=== PATIENT | female | born 1975 ===

== ENCOUNTER → 2020-10-23 10:30 | Outpatient (BNVA) | payer OTHER, SELFPAY | PROVIDERS: Family Provider Internal Medicine; Visit Provider Nurse Practitioner Family | DX: Z20.828 Contact with and (suspected) exposure to other viral communicable diseases (principal); J06.9 Acute upper respiratory infection, unspecified | CPT/HCPCS: 87426 ==

== ENCOUNTER → 2020-12-10 16:58 | Outpatient (BNVA) | payer BC, SELFPAY | PROVIDERS: Family Provider Internal Medicine; PCP Internal Medicine; Visit Provider Obstetrics & Gynecology | DX: Z30.09 Encounter for other general counseling and advice on contraception (principal) | CPT/HCPCS: 87635 ==

== ENCOUNTER 2020-12-16 11:27 | Day surgery (SDC) | payer BC, SELFPAY ==
[2020-12-12 10:13] VITALS: BMI 32.8
--- NOTE | 2020-12-12 10:34 | ANES.PREANE2 ---
Pre-Anesthetic Assessment Pre-Anesthetic Assessment: Height/Weight: Height 1.7 m Weight 95.254 kg Preop Diagnosis: Undesired ferlitily Proposed Procedure: Operation Date: 12/16/20 12:55 Proposed Procedures p Lap Fulg,Removal of Tubes Sterilization 38387 Z30.9(Not Applicable) - Johnnie Florez MD Familial anesthetic complications: None Social: Social History: No alcohol and No tobacco Exam: Pre-Anes Outpt Exam: alert, oriented x 3, clear to auscultation bilaterally and regular rate & rhythm Airway: Cervical ROM: WNL MP: 1 Dentition: Other (missing) Anesthetic Plan: ASA status: 1 Anesthesia: General Risk of > 500 ml blood loss (7ml/kg in children): No PFSH Anesthesia PFSH: Medical History (Updated 11/23/20 @ 16:16 by Johnnie Florez MD) Depression with anxiety Stage 1 hypertension Surgical History (Updated 11/23/20 @ 16:11 by Johnnie Florez MD) No pertinent past surgical history Family History Father Cancer Brother Cancer Grandmother Diabetes Maternal Hypertension Maternal Hyperlipidemia Maternal Mother Diabetes Hyperlipidemia Social History (Updated 11/23/20 @ 16:13 by Johnnie Florez MD) Smoking and tobacco status: never smoked Alcohol intake: never Adopted: No Marital status: Current occupational status: employed Female Reproductive History: Date of last menstrual period: 11/27/20 Data Anesthesia Cardiac Studies: No Data to Display
[2020-12-12 10:52] LABS: Basophils % 0.5 %; Eosinophils # 0.1 10^3/uL (0.0-0.8); Hematocrit 41.8 % (37.0-47.0); Hemoglobin 13.9 g/dL (11.5-15.3); Lymphocytes # 1.9 10^3/uL (0.8-4.8); Mean Corpuscular HGB Conc 33.3 g/dL (30.0-36.0); Mean Corpuscular Hemoglobin 31.8 pg (28.0-34.0); Mean Corpuscular Volume 95.7 fL (81-99); Mean Platelet Volume 10.1 fL (7.4-10.4); Monocytes # 0.3 10^3/uL (0.2-0.9); Monocytes % 5.1 %; Neutrophils # 3.17 10^3/uL (1.8-7.7); Neutrophils % 57.2 %; Nucleated Red Blood Cells % 0 %; Platelet Count 241 10^3/cmm (130-400); Red Blood Count 4.37 10^6/uL (4.1-5.3); Red Cell Distribution Width 12.6 % (12.1-15.1); White Blood Count 5.5 10^3/uL (4.0-10.0)
[2020-12-16] VITALS (8 sets, daily range): BP systolic 108–142; BP diastolic 69–91; PULSE 61–89; RESP 16–19; TEMP 36.1–36.6; O2SAT 98–100
[2020-12-16 11:43] LABS: OR HCG Qualitative Urine Negative (Negative)
[2020-12-16] MEDS: sodium chloride 0.9% 1,000 ML 30 ML IV (12:01)
[2020-12-16] MEDS: ketorolac 30 mg/mL INJ IVP (12:02)
[2020-12-16] MEDS: gabapentin 300 mg Capsule PO (12:02)
--- NOTE | 2020-12-16 12:37 | W.PM.OPSUD ---
Surgery/Procedure H&P Update DATE OF PROCEDURE: December 16, 2020 DATE H&P PERFORMED: 11/20/20 H&P UPDATE INFORMATION: I have reviewed H&P completed within last 30 days, I have examined patient prior to procedure, No changes to prior documentation and H&P is in [facility] EMR on date indicated PREOP DIAGNOSIS: Undesired ferlitily PLANNED PROCEDURE: Operation Date: 12/16/20 12:55 Proposed Procedures p Lap Fulg,Removal of Tubes Sterilization 84413 Z30.9(Not Applicable) - Johnnie Florez MD
--- NOTE | 2020-12-16 13:28 | PM.OP ---
Operative Report Date of procedure: December 16, 2020 Pre-op Diagnosis: Undesired ferlitily Post-op Diagnosis: Undesired fertility Procedure Done: Laparoscopic bilateral tubal fulguration with complete salpingectomy Specimens removed/disposition: Portions of right and left fallopian tubes. Surgeon: Johnnie Florez Farm Management Professor: None Anesthesia: General Estimated blood loss (mL): 5 IV fluids (mL): 500 Urine output (mL): 200 Complications: None Findings: Second-degree uterine prolapse. Normal-appearing uterus, tubes, and ovaries. Brief History: Patient is a 45-year-old female 4, para 3-0-1-3 with an LMP of 11/10/2020 who is currently using Xulane patch for control. She presented to the office on 11/20/2020 requesting sterilization. She is adamant that she does not want any further children and wants to proceed with sterilization. She is requesting complete removal of both tubes. Permanence of the procedure was reviewed with her. The inability of complete removal of the tubes to be reversed was discussed. Failure rates and increased risk for ectopic were discussed. She still wished to proceed with sterilization. She is presenting for surgery. Procedure: Patient was taken to the operating room were general anesthesia was obtained. She was prepped and draped in the usual sterile fashion in the dorsal supine position with legs in Owen style stirrups. Sequential compression boots were placed prior to starting the case. Catheter was inserted and bladder was drained. Exam under anesthesia was performed and patient was found to have second-degree uterine prolapse. Weighted speculum was placed in the vagina and the cervix was grasped with a single-tooth tenaculum. A ZUMI was placed. The infraumbilical region was injected with 0.5% Marcaine plain. Skin incision was made with the knife in the lower edge of the navel and a size 5 trocar and sheath were inserted under direct visualization using an Optiview type technique. Trocar was removed and replaced with a laparoscope confirming intra-abdominal placement. The abdomen was inflated with carbon dioxide. The anterior abdominal wall was inspected and noted to be free of adhesions. In the left and right lower quadrants lateral to the inferior epigastric vessels, the skin was injected with 0.5% Marcaine plain. Skin incisions were made with a knife and a 5 mm trocar and sheath were inserted under direct visualization at each site. The pelvis was thoroughly inspected and was normal in appearance. Using the Voyant sealing device, starting on the left side at the fimbriated end of the tube, the mesosalpinx was sealed and cut along the length of the tube. At the proximal end of the tube, the tube itself was sealed and cut. The fallopian tube was brought out through the port. Using the Voyant sealing device, starting on the right side at the fimbriated end of the tube, the mesosalpinx was sealed and cut along the length of the tube. At the proximal end of the tube, the tube itself was sealed and cut. The fallopian tube was brought out through the port. The dissection area was thoroughly inspected and noted to be hemostatic. The abdomen was deflated and the ports removed. The 5 mm sites were closed with single stitches of 4-0 Vicryl suture. Skin glue was applied. The ZUMI was removed and there was minimal bleeding from the tenaculum site. Patient tolerated the procedure well. Sponge, needle and instrument counts were correct. DRAINS: None POSTOPERATIVE STATUS: The patient was transferred to the recovery room in satisfactory condition. DISPOSITION: Discharge to home when criteria was met. FOLLOWUP APPOINTMENT: Followup appointment is scheduled in my office on 12/31/2020. MEDICATIONS: Patient received prescriptions for: Tramadol 50 mg, 1 to 2 tablets every 6 hours as needed for pain, #20, 0 refills Ibuprofen 800 mg, 1 tablet 3 times a day as needed for pain, #30, 0 refills
--- NOTE | 2020-12-16 14:03 | ANES.PAUD2 ---
Pre-Anesthetic Update Pre-Anesthetic Assessment: Date of Surgery/Procedure: 12/16/20 Preop Diagnosis: Undesired ferlitily Proposed Procedure: Operation Date: 12/16/20 12:55 Proposed Procedures p Vanesa Marjang,Removal of Tubes Sterilization 68848 Z30.9(Not Applicable) - Johnnie Florez MD Any changes to Pre-Anesthetic Assessment?: No Last Intake: Intake Last Liquid Date 12/16/20 Last Liquid Time 03:00 Last Solid Date 12/15/20 Last Solid Time 21:30 Labs Last 48hrs: Laboratory Results - last 48 hr 12/16/20 11:28 Urine HCG, Qual Negative Vitals: Temperature 97 F L 12/16/20 13:56 Temperature Source Temporal Artery S can 12/16/20 13:45 Pulse Rate 82 12/16/20 13:56 Respiratory Rate 18 12/16/20 13:56 Blood Pressure 139/87 12/16/20 13:56 Blood Pressure Ora n 104 12/16/20 13:56 Pulse Oximetry 98 12/16/20 13:56 Oxygen Delivery Me thod 12/16/20 13:45 Oxygen Flow Rate 8 12/16/20 13:35 Exam: Pre-Anes Outpt Exam: alert, oriented x 3, clear to auscultation bilaterally and regular rate & rhythm Cardiac Studies: No Data to Display
--- NOTE | 2020-12-16 14:03 | ANE.PACU2 ---
Inpatient post-anesthesia follow up: Airway intact: Yes Vital signs: Temperature 97 F Pulse Rate 82 Respiratory Rate 18 Blood Pressure 139/87 Pulse Oximetry 98 Oxygen Delivery Me thod Room Air Oxygen Flow Rate 8 Fraction of Inspir ed Oxygen Hydration adequate: Yes Nausea and vomiting: No Pain level: 2 Mental status: Baseline
== END 2020-12-16 14:35 | disposition home or self-care (01) ==
PROVIDERS: PCP Nurse Practitioner Family; Visit Provider Obstetrics & Gynecology
PROC: (CPT 58661; principal; 2020-12-16 12:55)
DX: Z30.2 Encounter for sterilization (principal); I10 Essential (primary) hypertension; F41.8 Other specified anxiety disorders
CPT/HCPCS: 58661; 12345; 36415; 81025; 84703; 85025; 88302; 96365; 96374; J0131; J1885; J2250; J2704; J3010; J3490; J7030

== ENCOUNTER 2021-06-17 10:43 | Outpatient (CLI) | payer BC, SELFPAY ==
--- NOTE | 2021-06-17 11:03 | ECG_ITS ---
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 Measurements Intervals [place] Rate: 54 P: 45 RI: 127 QRS: 50 QRSD: 102 T: 25 QT: 414 QTc: 392 Interpretive Statements SINUS BRADYCARDIA No previous ECG available for comparison Electronically Signed On 06-18-2021 10:01:18 CDT by Sabine Currie M.D. [email or web address]
== END 2021-06-17 10:44 | disposition home or self-care (01) ==
LOC: RT 10:43
PROVIDERS: PCP Nurse Practitioner Family; Visit Provider Nurse Practitioner Family
DX: R07.9 Chest pain, unspecified (principal); R00.1 Bradycardia, unspecified
CPT/HCPCS: 93005

== ENCOUNTER → 2022-03-23 15:12 | Outpatient (BNVA) | payer BC, SELFPAY | PROVIDERS: PCP Nurse Practitioner Family; Visit Provider Nurse Practitioner Family | DX: N39.0 Urinary tract infection, site not specified (principal); R30.0 Dysuria; R82.2 Biliuria; Z72.51 High risk heterosexual behavior; N30.00 Acute cystitis without hematuria | CPT/HCPCS: 81003; 87491; 87591; 87661 ==

== ENCOUNTER → 2022-03-24 16:00 | Outpatient (BNVA) | payer BC, SELFPAY | PROVIDERS: PCP Nurse Practitioner Family; Visit Provider Nurse Practitioner Family | DX: R82.2 Biliuria (principal); Z72.51 High risk heterosexual behavior; N30.00 Acute cystitis without hematuria | CPT/HCPCS: 80053; 82607; 82728; 82746; 83550; 85025 ==

== ENCOUNTER → 2022-04-13 10:45 | Outpatient (BNVA) | payer BC, SELFPAY | PROVIDERS: PCP Nurse Practitioner Family; Visit Provider Obstetrics & Gynecology | DX: Z12.4 Encounter for screening for malignant neoplasm of cervix (principal); N91.5 Oligomenorrhea, unspecified | CPT/HCPCS: 83001; 84702; 87624 ==

== ENCOUNTER 2022-04-19 16:30 | Outpatient (CLI) | payer BC, SELFPAY ==
--- NOTE | 2022-04-19 17:20 | XRR_ITS ---
PROCEDURE INFORMATION: Exam: XR Complete Acute Abdomen Series Including Chest Exam date and time: 04/19/2022 5:21 PM Age: 46 years old Clinical indication: Prior surgery; Surgery type: Tubal; Patient HX: Constipation for 2 weeks TECHNIQUE: Imaging protocol: XR complete acute abdomen series, including 2 or more views of the abdomen and a single view chest. COMPARISON: ES surgery / GI images 12/16/2020 12:40 PM FINDINGS: Lungs: Normal. No consolidation. Pleural spaces: Normal. No pleural effusions. No pneumothorax. Heart/Mediastinum: Normal. No cardiomegaly. Gastrointestinal tract: Normal. No bowel dilation. Intraperitoneal space: Normal. No free air. Bones/joints: Normal. No acute fracture. Soft tissues: Normal. XR/XR acute abdomen series [id number] IMPRESSION: No significant abnormality.
== END 2022-04-19 16:31 | disposition home or self-care (01) ==
LOC: RAD 16:34
PROVIDERS: PCP Nurse Practitioner Family; Visit Provider Nurse Practitioner Family
DX: K59.00 Constipation, unspecified (principal); R10.9 Unspecified abdominal pain
CPT/HCPCS: 74022; 80053; 81003; 83690; 85025; 87491; 87591; 87661

== ENCOUNTER → 2022-08-06 13:12 | Outpatient (BNVA) | payer BC, SELFPAY | PROVIDERS: PCP Nurse Practitioner Family; Visit Provider Obstetrics & Gynecology | DX: R87.610 Atypical squamous cells of undetermined significance on cytologic smear of cervix (ASC-US) (principal); R87.810 Cervical high risk human papillomavirus (HPV) DNA test positive | CPT/HCPCS: 81025; 88305 ==

== ENCOUNTER → 2022-12-09 12:15 | Outpatient (BNVA) | payer BC, SELFPAY | PROVIDERS: Visit Provider Emergency Medicine | DX: J02.9 Acute pharyngitis, unspecified (principal) | CPT/HCPCS: 87071; 87880 ==

== ENCOUNTER → 2023-05-20 08:08 | Outpatient (BNVA) | payer BC, SELFPAY | PROVIDERS: Visit Provider Obstetrics & Gynecology | DX: R30.0 Dysuria (principal) | CPT/HCPCS: 84315; 87086 ==

== ENCOUNTER → 2023-09-12 15:00 | Outpatient (BNVA) | payer BC, SELFPAY | PROVIDERS: Visit Provider Obstetrics & Gynecology | DX: Z12.4 Encounter for screening for malignant neoplasm of cervix (principal) | CPT/HCPCS: 87624 ==

== ENCOUNTER → 2023-09-22 08:00 | Outpatient (BNVA) | payer BC, SELFPAY | PROVIDERS: Referring Provider Obstetrics & Gynecology; Visit Provider Obstetrics & Gynecology | DX: R52 Pain, unspecified (principal); R89.6 Abnormal cytological findings in specimens from other organs, systems and tissues | CPT/HCPCS: 76830 ==

== ENCOUNTER → 2023-10-07 08:57 | Outpatient (BNVA) | payer BC, SELFPAY | PROVIDERS: Visit Provider Obstetrics & Gynecology | DX: R30.0 Dysuria (principal); R87.615 Unsatisfactory cytologic smear of cervix | CPT/HCPCS: 84315; 88175 ==

== ENCOUNTER → 2023-12-08 13:00 | Outpatient (BNVA) | payer BC, SELFPAY | PROVIDERS: Visit Provider Obstetrics & Gynecology | DX: R39.9 Unspecified symptoms and signs involving the genitourinary system (principal); Z01.818 Encounter for other preprocedural examination | CPT/HCPCS: 81025; 84315; 88305 ==

== ENCOUNTER → 2025-01-18 10:01 | Outpatient (BNVA) | payer OTHER, SELFPAY | PROVIDERS: Visit Provider Obstetrics & Gynecology | DX: Z00.00 Encounter for general adult medical examination without abnormal findings (principal); Z01.419 Encounter for gynecological examination (general) (routine) without abnormal findings; Z12.39 Encounter for other screening for malignant neoplasm of breast; Z12.11 Encounter for screening for malignant neoplasm of colon | CPT/HCPCS: 87624 ==

== ENCOUNTER 2025-09-20 10:45 | Emergency (ER) | payer OTHER, SELFPAY ==
--- NOTE | 2025-09-20 10:51 | CT_ITS ---
WS: [id number] CT ABDOMEN AND PELVIS NONCONTRAST HISTORY: flank pain, bilateral TECHNIQUE: Imaging performed through the abdomen and pelvis. Coronal and sagittal reformats are submitted. All CT scans at [facility] use at least one of these dose optimization techniques: automated exposure control; mA and/or kV adjustment per patient size (includes targeted exams where dose is matched to clinical indication); or iterative reconstruction. DLP: 734.46 mGy.cm COMPARISON: None available. Lower thorax: Lung bases are clear. Visualized heart is normal. Small hiatal hernia. Liver: Normal size liver. No mass or bile duct dilatation. Gallbladder: Normal gallbladder. No pericholecystic fluid or cholelithiasis. No gallbladder wall thickening. Pancreas: Normal size and attenuation. Normal pancreatic duct. No pancreatitis or mass. Spleen: Normal. Adrenal glands: Normal. No mass. Right kidney: Normal size kidney with no mass or hydronephrosis. Left kidney: Normal size kidney with no mass or hydronephrosis. Aorta: Normal abdominal aorta, no aneurysm or atherosclerosis. No free fluid, intraperitoneal air or significant lymphadenopathy. GI tract: No GI tract obstruction. Increased fecal material in the RIGHT colon and transverse colon. Distal colon is normal caliber. No colitis. Normal appendix. Abdominal wall: Negative. No hernia. Pelvis: Uterus is midline. Urinary bladder is not distended. No free fluid or adenopathy. Osseous structures: Small sclerotic bone island in the LEFT ilium. CT/CT kidney stone [id number] IMPRESSION: 1. No renal obstruction or calcifications. 2. Normal appendix. 3. No free fluid or adenopathy. 4. There are a few sigmoid diverticula but no acute diverticulitis.
[2025-09-20 11:01] VITALS: BP 160/94; PULSE 81; RESP 18; TEMP 37.1; O2SAT 98; BMI 25.0
[2025-09-20 11:07] LABS: Glucose Urine UA Negative (Normal); Nitrate Urine Positive (Negative); Specific Gravity, Urine 1.020 (1.005-1.030)
[2025-09-20 11:12] LABS: Add Urine Microscopic? YES
--- NOTE | 2025-09-20 11:26 | W.ED.ABDPA2 ---
Documented by User: SCOTT Lira 09/20/25 12:32 HPI - Abdominal Pain General: Chief Complaint: Abdominal Pain Stated Complaint: L side pain going to front ABD Time Seen by Provider: 09/20/25 10:48 Source: patient Mode of arrival: ambulatory Limitations: no limitations History of Present Illness: Patient is a 49-year-old female presents the emergency department planing of left back and flank pain that began yesterday but worsening. Reports the pain is currently 20/10, denies history of kidney stones and states that she was seated taken a test when the pain started. Describes it as a constant sharp pain, she is noting infrequent urination and dysuria, as well as chills and nausea but no vomiting or documented fevers. She does note that the pain is felt sometimes to the right flank as well, but primarily at this time is left flank and left lower abdomen. Her vitals are stable, she is uncomfortable appearing secondary to pain but overall nontoxic. History of tubal ligation, no other abdominal surgeries. No trauma. No chest pain, shortness of breath, bowel changes, vomiting, hematuria, or other symptoms reported at this time. MD elicited complaint: abdominal pain and flank pain Pertinent past history: none Onset (ago): day(s) Pain Consistency: constant Location: L flank Severity: severe Pain scale (0-10): 20 Quality: sharp Radiation: LLQ Associated Symptoms: Reports chills, dysuria and nausea; Denies bloating, change in stool character, constipation, diarrhea, fever(s), hematochezia, hematuria and vomiting Related Data Home Medications ?Medication ?Instructions ?Recorded ?Confirmed acetaminophen 500 mg tablet 1,500 mg PO Q6H PRN Fever Or Pain 09/20/25 09/20/25 (Tylenol Extra Strength) ibuprofen 200 mg tablet (Advil) 400 mg PO Q6H PRN Fever Or Pain 09/20/25 09/20/25 lysine 500 mg tablet (L-Lysine) 500 mg PO DAILY 09/20/25 09/20/25 mecobalamin (vitamin B12) 1,000 1,000 mcg PO DAILY 09/20/25 09/20/25 mcg chewable tablet (B12 Active) melatonin 10 mg tablet 20 mg PO DAILY sleep 09/20/25 09/20/25 melatonin 5 mg tablet 15 mg PO BEDTIME sleep 09/20/25 09/20/25 multivitamin 1 tab PO DAILY 09/20/25 09/20/25 Previous Rx's ?Medication ?Instructions ?Recorded cefdinir 300 mg capsule 300 mg PO BID 7 days #14 caps 09/20/25 hydrocodone 7.5 mg-acetaminophen 1 tab PO Q8H PRN pain #15 tabs 09/20/25 325 mg tablet ondansetron 4 mg disintegrating 4 mg PO TID PRN nausea and 09/20/25 tablet vomiting #30 tabs Allergies Allergy/AdvReac Type Severity Reaction Status Date / Time No Known Allergies Allergy Verified 09/20/25 10:14 Review of Systems General: Reports: 10 or more systems reviewed and unremarkable except in HPI and below Const: Reports: chills; Denies: fever(s), change in appetite, change in weight or diaphoresis ENMT: Denies: throat pain or hoarseness Card: Denies: chest pain, palpitations or lightheadedness Resp: Denies: dyspnea, productive cough or wheezing GI: Reports: abdominal pain and nausea; Denies: vomiting, diarrhea, constipation, bloating, change in stool character or hematochezia : Reports: flank pain, difficulty voiding and dysuria; Denies: hematuria Musc: Reports: back pain; Denies: neck pain Skin/Breast: Denies: rash or new lesions Neuro: Denies: headache(s) or dizziness PFSH ED PFSH: Medical History Stage 1 hypertension Depression with anxiety Surgical History S/P tubal ligation (12/16/20) Laparoscopic bilateral tubal fulguration with complete salpingectomy. Diagnosis: Undesired fertility. [place] [facility] [place]. Family History Father Cancer Brother Cancer Grandmother Diabetes Maternal Hypertension Maternal Hyperlipidemia Maternal Mother Diabetes Hyperlipidemia Denies family history of Colon cancer Ovarian cancer Breast cancer Uterine cancer Thyroid disease Stroke Social History Smoking and tobacco/nicotine status: never used tobacco/nicotine Substance/Drug Use: never Physical Exam Const: COMMON NORMALS: average body habitus, patient oriented x3, no limitations, alert and well nourished GENERAL APPEARANCE: cooperative ORIENTATION/CONSCIOUSNESS: Yes awake OTHER: nontoxic, uncomfortable appearing secondary to pain Neck/C-Spine: COMMON NORMALS: full ROM, supple and no meningeal signs Resp: COMMON NORMALS: normal respiratory effort, No retractions, No use of accessory muscles and clear to auscultation bilaterally AUSCULTATION: clear to auscultation bilaterally, no crackles, no rales, no rhonchi and no wheezes Cardio: COMMON NORMALS: regular rate, regular rhythm, No gallops present (Cardio), No clicks present (Cardio), No murmurs present (Cardio) and No rub (Cardio) RATE: regular rate RHYTHM: regular rhythm GI: COMMON NORMALS: Soft to palpation and no masses AUSCULTATION: Yes normoactive bowel sounds PALPATION: Yes Soft to palpation, Yes Tenderness to palpation present (GI) Details: LLQ, No Guarding due to palpation present (GI) and No Rigid due to palpation RECTAL EXAM: deferred : BLADDER/KIDNEY EXAM: Yes CVA tenderness Back/Pelvis: GENERAL BACK: Yes CVA tenderness CVA tenderness: left Extremity: COMMON NORMALS: normal to inspection and full ROM Neuro: COMMON NORMALS: patient oriented x3, moves all extremities, no focal motor deficits and no sensory deficits noted SENSORIUM/ORIENTATION: Yes alert MENINGEAL SIGNS: Yes no meningeal signs Psych: COMMON NORMALS: mental status grossly normal, cooperative and speech normal SPEECH: Yes normal speech Skin: COMMON NORMALS: no rashes or lesions noted GENERAL SKIN EXAM: no rashes or lesions noted Course Vital Signs: Vital signs: Vital Signs Temperature 98.8 F 09/20/25 11:01 Pulse Rate 72 09/20/25 12:30 Respiratory Rate 16 09/20/25 12:28 Blood Pressure 148/85 09/20/25 12:30 Pulse Oximetry 96 09/20/25 12:30 Oxygen Delivery Me thod Room Air 09/20/25 11:01 MDM - Abdominal Pain Medical Decision Making This patient presented with a day of worsening left flank and back pain, radiating to the left lower quadrant today. No history of kidney stones. Did report some subjective chills and nausea, as well as burning with urination and frequent urination. On exam nontoxic-appearing but did appear uncomfortable, had noted 20/10 pain that was greatly improved after IV fentanyl and nausea medications here in the ED. Lab work reassuring, urinalysis positive nitrates and leukocytes but overall did not appear significantly infectious. No leukocytosis, kidney function normal and overall the rest of her labs are normal. CT abdomen pelvis shows no current renal obstruction or calcification, and no other obvious explanation of her pain. This could present as renal colic, passed kidney stone, or stone of unknown etiology that is not clearly visible on CT. Regardless she is stable for outpatient therapy, she is requesting antibiotics as she is concerned for urinary tract infection from the symptoms, though as mention the urinalysis is not significantly infectious can go ahead and treat at patient's request with cefdinir. She is told to return with any fevers, worsening of pain, persistent vomiting, or any other concerns and to treat outpatient as we discussed. Encouraged her to increase her fluid intake, patient agrees with this plan for discharge at this time. Lab Data 09/20/25 11:17 09/20/25 11:17 Labs/Radiology: Radiology Impressions Abdomen/Pelvis CT 09/20/25 10:51 IMPRESSION: 1. No renal obstruction or calcifications. 2. Normal appendix. 3. No free fluid or adenopathy. 4. There are a few sigmoid diverticula but no acute diverticulitis. Chest X-Ray 09/20/25 11:52 IMPRESSION: 1. Negative chest. Laboratory Results WBC 9.92 10^3/uL (3.29-11.43) 09/20/25 11:17 RBC 4.63 10^6/uL (3.85-5.65) 09/20/25 11:17 Hgb 14.80 g/dL (11.27-16.99) 09/20/25 11:17 Hct 43.1 % (36-47) 09/20/25 11:17 MCV 93.1 fl (85-98) 09/20/25 11:17 MCH 32.0 pg (27-33) 09/20/25 11:17 MCHC 34.3 g/dL (30-55) 09/20/25 11:17 RDW 12.8 % (12.1-15.1) 09/20/25 11:17 Plt Count 267 10^3/cmm (157-399) 09/20/25 11:17 MPV 9.8 fL (7.4-10.4) 09/20/25 11:17 Neut % (Auto) 86.0 % 09/20/25 11:17 Lymph % (Auto) 11.1 % 09/20/25 11:17 Heard % (Auto) 2.4 % 09/20/25 11:17 Eos % (Auto) 0.1 % 09/20/25 11:17 Baso % (Auto) 0.2 % 09/20/25 11:17 Neut # (Auto) 8.53 10^3/uL (1.8-7.7) H 09/20/25 11:17 Lymph # (Auto) 1.1 10^3/uL (0.8-4.8) 09/20/25 11:17 Heard # (Auto) 0.2 10^3/uL (0.2-0.9) 09/20/25 11:17 Eos # (Auto) 0.0 10^3/uL (0.0-0.8) 09/20/25 11:17 Baso # (Auto) 0.0 10^3/uL (0.0-0.1) 09/20/25 11:17 Nucleated RBC % (auto) 0 % 09/20/25 11:17 Nucleated RBCs # 0.0 /100WBC 09/20/25 11:17 Sodium 139 mmol/L (136-145) 09/20/25 11:17 Potassium 4.1 mmol/L (3.5-5.1) 09/20/25 11:17 Chloride 102 mmol/L (98-107) 09/20/25 11:17 Carbon Dioxide 22 mmol/L (22-29) 09/20/25 11:17 Anion Gap 19.1 (5-19) H 09/20/25 11:17 BUN 7 mg/dL (6-20) 09/20/25 11:17 Creatinine 0.6 mg/dL (0.5-0.9) 09/20/25 11:17 GFR Calculation 106.3 mL/min (90-130) 09/20/25 11:17 Glucose 131 mg/dL (65-115) H 09/20/25 11:17 Calculated Osmolality 288 mOsm/kg (285-295) 09/20/25 11:17 Calcium 10.0 mg/dL (8.5-10.5) 09/20/25 11:17 Total Bilirubin 1.0 mg/dL (0.15-1.2) 09/20/25 11:17 AST 35 U/L (0-32) H 09/20/25 11:17 ALT 33 U/L (0-33) 09/20/25 11:17 Alkaline Phosphatase 105 U/L (35-105) 09/20/25 11:17 Total Protein 8.2 g/dL (6.6-8.7) 09/20/25 11:17 Albumin 5.1 g/dL (3.5-5.2) 09/20/25 11:17 Globulin 3.1 g/dL (1.3-4.6) 09/20/25 11:17 Lipase 17 U/L (13-60) 09/20/25 11:17 Urine Color Dark yellow (Yellow) A 09/20/25 11:00 Urine Appearance Clear (CLEAR) 09/20/25 11:00 Urine pH 7.5 (5-7) 09/20/25 11:00 Ur Specific [place] 1.020 (1.005-1.030) 09/20/25 11:00 Urine Protein Negative (Negative) 09/20/25 11:00 Urine Glucose (UA) Negative (Normal) 09/20/25 11:00 Urine Ketones Negative (Negative) 09/20/25 11:00 Urine Blood Negative (Negative) 09/20/25 11:00 Urine Nitrate Positive (Negative) A 09/20/25 11:00 Urine Bilirubin Negative (Negative) 09/20/25 11:00 Urine Urobilinogen 1.0 mg/dL (Negative) 09/20/25 11:00 Ur Leukocyte Esterase Trace (Negative) A 09/20/25 11:00 Urine RBC 3-5 /hpf (0-2) 09/20/25 11:00 Urine WBC 0-5 /hpf (0-5) 09/20/25 11:00 Ur Squamous Epith Cells 0-5 /hpf (0-5) 09/20/25 11:00 Amorphous Sediment Not Reportable 09/20/25 11:00 Urine Bacteria None seen /hpf (NONE) 09/20/25 11:00 Hyaline Casts 0-4 /lpf H 09/20/25 11:00 All radiology interpretation(s) finalized by discharge Discharge Plan Discharge Patient Disposition: Home Clinical Impression: Renal colic Urinary tract infection Qualifiers: Urinary tract infection type: acute cystitis Hematuria presence: without hematuria Qualified Code(s): N30.00 - Acute cystitis without hematuria Condition: Stable Prescriptions: New hydrocodone-acetaminophen 7.5-325 mg tablet 1 tab PO Q8H PRN (Reason: pain) Qty: 15 0RF ondansetron 4 mg tablet,disintegrating 4 mg PO TID PRN (Reason: nausea and vomiting) Qty: 30 0RF cefdinir 300 mg capsule 300 mg PO BID 7 Days Qty: 14 0RF No Action multivitamin Tablet 1 tab PO DAILY acetaminophen [Tylenol Extra Strength] 500 mg Tablet 1,500 mg PO Q6H PRN (Reason: Fever Or Pain) ibuprofen [Advil] 200 mg Tablet 400 mg PO Q6H PRN (Reason: Fever Or Pain) lysine [L-Lysine] 500 mg Tablet 500 mg PO DAILY melatonin 5 mg Tablet 15 mg PO BEDTIME melatonin 10 mg Tablet 20 mg PO DAILY mecobalamin (vitamin B12) [B12 Active] 1,000 mcg Tablet,Chewable 1,000 mcg PO DAILY Discharge Orders: Discharge ED (Routine); Ordered 09/20/25 Ordered By: Zion Farooq Patient Instructions: Abdominal Pain (ED), Patient Portal & Abril Instructions Activity Restrictions/Additional Instructions: Please take medications as prescribed. Monitor for any fever, vomiting, worsening of symptoms, or any other concerns that you have and return to the emergency department as we discussed. Make sure to drink plenty of fluids at home. 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 by User: Amadou Sahu DO 09/21/25 13:52 HPI - Abdominal Pain General: Chief Complaint: Abdominal Pain Stated Complaint: L side pain going to front ABD Time Seen by Provider: 09/20/25 10:48 Related Data Home Medications ?Medication ?Instructions ?Recorded ?Confirmed acetaminophen 500 mg tablet 1,500 mg PO Q6H PRN Fever Or Pain 09/20/25 09/20/25 (Tylenol Extra Strength) ibuprofen 200 mg tablet (Advil) 400 mg PO Q6H PRN Fever Or Pain 09/20/25 09/20/25 lysine 500 mg tablet (L-Lysine) 500 mg PO DAILY 09/20/25 09/20/25 mecobalamin (vitamin B12) 1,000 1,000 mcg PO DAILY 09/20/25 09/20/25 mcg chewable tablet (B12 Active) melatonin 10 mg tablet 20 mg PO DAILY sleep 09/20/25 09/20/25 melatonin 5 mg tablet 15 mg PO BEDTIME sleep 09/20/25 09/20/25 multivitamin 1 tab PO DAILY 09/20/25 09/20/25 Previous Rx's ?Medication ?Instructions ?Recorded cefdinir 300 mg capsule 300 mg PO BID 7 days #14 caps 09/20/25 hydrocodone 7.5 mg-acetaminophen 1 tab PO Q8H PRN pain #15 tabs 09/20/25 325 mg tablet ondansetron 4 mg disintegrating 4 mg PO TID PRN nausea and 09/20/25 tablet vomiting #30 tabs Allergies Allergy/AdvReac Type Severity Reaction Status Date / Time No Known Allergies Allergy Verified 09/20/25 10:14 PFS ED PFSH: Medical History Stage 1 hypertension Depression with anxiety Surgical History S/P tubal ligation (12/16/20) Laparoscopic bilateral tubal fulguration with complete salpingectomy. Diagnosis: Undesired fertility. [place] [facility] [place]. Family History Father Cancer Brother Cancer Grandmother Diabetes Maternal Hypertension Maternal Hyperlipidemia Maternal Mother Diabetes Hyperlipidemia Denies family history of Colon cancer Ovarian cancer Breast cancer Uterine cancer Thyroid disease Stroke Social History Smoking and tobacco/nicotine status: never used tobacco/nicotine Substance/Drug Use: never Course Vital Signs: Vital signs: Vital Signs Temperature 98.8 F 09/20/25 11:01 Pulse Rate 72 09/20/25 12:30 Respiratory Rate 16 09/20/25 12:28 Blood Pressure 148/85 09/20/25 12:30 Pulse Oximetry 96 09/20/25 12:30 Oxygen Delivery Me thod Room Air 09/20/25 11:01 MDM - Abdominal Pain Medical Decision Making This patient presented with a day of worsening left flank and back pain, radiating to the left lower quadrant today. No history of kidney stones. Did report some subjective chills and nausea, as well as burning with urination and frequent urination. On exam nontoxic-appearing but did appear uncomfortable, had noted 20/10 pain that was greatly improved after IV fentanyl and nausea medications here in the ED. Lab work reassuring, urinalysis positive nitrates and leukocytes but overall did not appear significantly infectious. No leukocytosis, kidney function normal and overall the rest of her labs are normal. CT abdomen pelvis shows no current renal obstruction or calcification, and no other obvious explanation of her pain. This could present as renal colic, passed kidney stone, or stone of unknown etiology that is not clearly visible on CT. Regardless she is stable for outpatient therapy, she is requesting antibiotics as she is concerned for urinary tract infection from the symptoms, though as mention the urinalysis is not significantly infectious can go ahead and treat at patient's request with cefdinir. She is told to return with any fevers, worsening of pain, persistent vomiting, or any other concerns and to treat outpatient as we discussed. Encouraged her to increase her fluid intake, patient agrees with this plan for discharge at this time. Chart reviewed Lab Data 09/20/25 11:17 09/20/25 11:17 Labs/Radiology: Radiology Impressions Abdomen/Pelvis CT 09/20/25 10:51 IMPRESSION: 1. No renal obstruction or calcifications. 2. Normal appendix. 3. No free fluid or adenopathy. 4. There are a few sigmoid diverticula but no acute diverticulitis. Chest X-Ray 09/20/25 11:52 IMPRESSION: 1. Negative chest. Laboratory Results WBC 9.92 10^3/uL (3.29-11.43) 09/20/25 11:17 RBC 4.63 10^6/uL (3.85-5.65) 09/20/25 11:17 Hgb 14.80 g/dL (11.27-16.99) 09/20/25 11:17 Hct 43.1 % (36-47) 09/20/25 11:17 MCV 93.1 fl (85-98) 09/20/25 11:17 MCH 32.0 pg (27-33) 09/20/25 11:17 MCHC 34.3 g/dL (30-55) 09/20/25 11:17 RDW 12.8 % (12.1-15.1) 09/20/25 11:17 Plt Count 267 10^3/cmm (157-399) 09/20/25 11:17 MPV 9.8 fL (7.4-10.4) 09/20/25 11:17 Neut % (Auto) 86.0 % 09/20/25 11:17 Lymph % (Auto) 11.1 % 09/20/25 11:17 Heard % (Auto) 2.4 % 09/20/25 11:17 Eos % (Auto) 0.1 % 09/20/25 11:17 Baso % (Auto) 0.2 % 09/20/25 11:17 Neut # (Auto) 8.53 10^3/uL (1.8-7.7) H 09/20/25 11:17 Lymph # (Auto) 1.1 10^3/uL (0.8-4.8) 09/20/25 11:17 Heard # (Auto) 0.2 10^3/uL (0.2-0.9) 09/20/25 11:17 Eos # (Auto) 0.0 10^3/uL (0.0-0.8) 09/20/25 11:17 Baso # (Auto) 0.0 10^3/uL (0.0-0.1) 09/20/25 11:17 Nucleated RBC % (auto) 0 % 09/20/25 11:17 Nucleated RBCs # 0.0 /100WBC 09/20/25 11:17 Sodium 139 mmol/L (136-145) 09/20/25 11:17 Potassium 4.1 mmol/L (3.5-5.1) 09/20/25 11:17 Chloride 102 mmol/L (98-107) 09/20/25 11:17 Carbon Dioxide 22 mmol/L (22-29) 09/20/25 11:17 Anion Gap 19.1 (5-19) H 09/20/25 11:17 BUN 7 mg/dL (6-20) 09/20/25 11:17 Creatinine 0.6 mg/dL (0.5-0.9) 09/20/25 11:17 GFR Calculation 106.3 mL/min (90-130) 09/20/25 11:17 Glucose 131 mg/dL (65-115) H 09/20/25 11:17 Calculated Osmolality 288 mOsm/kg (285-295) 09/20/25 11:17 Calcium 10.0 mg/dL (8.5-10.5) 09/20/25 11:17 Total Bilirubin 1.0 mg/dL (0.15-1.2) 09/20/25 11:17 AST 35 U/L (0-32) H 09/20/25 11:17 ALT 33 U/L (0-33) 09/20/25 11:17 Alkaline Phosphatase 105 U/L (35-105) 09/20/25 11:17 Total Protein 8.2 g/dL (6.6-8.7) 09/20/25 11:17 Albumin 5.1 g/dL (3.5-5.2) 09/20/25 11:17 Globulin 3.1 g/dL (1.3-4.6) 09/20/25 11:17 Lipase 17 U/L (13-60) 09/20/25 11:17 Urine Color Dark yellow (Yellow) A 09/20/25 11:00 Urine Appearance Clear (CLEAR) 09/20/25 11:00 Urine pH 7.5 (5-7) 09/20/25 11:00 Ur Specific [place] 1.020 (1.005-1.030) 09/20/25 11:00 Urine Protein Negative (Negative) 09/20/25 11:00 Urine Glucose (UA) Negative (Normal) 09/20/25 11:00 Urine Ketones Negative (Negative) 09/20/25 11:00 Urine Blood Negative (Negative) 09/20/25 11:00 Urine Nitrate Positive (Negative) A 09/20/25 11:00 Urine Bilirubin Negative (Negative) 09/20/25 11:00 Urine Urobilinogen 1.0 mg/dL (Negative) 09/20/25 11:00 Ur Leukocyte Esterase Trace (Negative) A 09/20/25 11:00 Urine RBC 3-5 /hpf (0-2) 09/20/25 11:00 Urine WBC 0-5 /hpf (0-5) 09/20/25 11:00 Ur Squamous Epith Cells 0-5 /hpf (0-5) 09/20/25 11:00 Amorphous Sediment Not Reportable 09/20/25 11:00 Urine Bacteria None seen /hpf (NONE) 09/20/25 11:00 Hyaline Casts 0-4 /lpf H 09/20/25 11:00 Discharge Plan Discharge Patient Disposition: Home Clinical Impression: Renal colic Urinary tract infection Qualifiers: Urinary tract infection type: acute cystitis Hematuria presence: without hematuria Qualified Code(s): N30.00 - Acute cystitis without hematuria Condition: Stable Prescriptions: New hydrocodone-acetaminophen 7.5-325 mg tablet 1 tab PO Q8H PRN (Reason: pain) Qty: 15 0RF ondansetron 4 mg tablet,disintegrating 4 mg PO TID PRN (Reason: nausea and vomiting) Qty: 30 0RF cefdinir 300 mg capsule 300 mg PO BID 7 Days Qty: 14 0RF No Action multivitamin Tablet 1 tab PO DAILY acetaminophen [Tylenol Extra Strength] 500 mg Tablet 1,500 mg PO Q6H PRN (Reason: Fever Or Pain) ibuprofen [Advil] 200 mg Tablet 400 mg PO Q6H PRN (Reason: Fever Or Pain) lysine [L-Lysine] 500 mg Tablet 500 mg PO DAILY melatonin 5 mg Tablet 15 mg PO BEDTIME melatonin 10 mg Tablet 20 mg PO DAILY mecobalamin (vitamin B12) [B12 Active] 1,000 mcg Tablet,Chewable 1,000 mcg PO DAILY Discharge Orders: Discharge ED (Routine); Ordered 09/20/25 Ordered By: Zion Farooq Patient Instructions: Abdominal Pain (ED), Patient Portal & Abril Instructions Activity Restrictions/Additional Instructions: Please take medications as prescribed. Monitor for any fever, vomiting, worsening of symptoms, or any other concerns that you have and return to the emergency department as we discussed. Make sure to drink plenty of fluids at home. 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
[2025-09-20 11:29] LABS: Hematocrit 43.1 % (36-47); Hemoglobin 14.80 g/dL (11.27-16.99); Mean Corpuscular HGB Conc 34.3 g/dL (30-55); Mean Corpuscular Hemoglobin 32.0 pg (27-33); Mean Corpuscular Volume 93.1 fl (85-98); Nucleated Red Blood Cells % 0 %; Platelet Count 267 10^3/cmm (157-399); Red Blood Count 4.63 10^6/uL (3.85-5.65); White Blood Count 9.92 10^3/uL (3.29-11.43)
[2025-09-20] MEDS: ondansetron 2 mg/ML SDV 2 mL 4 MG IVP (11:35)
[2025-09-20 11:36] VITALS: RESP 16; O2SAT 98
[2025-09-20] MEDS: fentaNYL 50 mcg/mL INJ 2mL 75 MCG IVP (11:36)
[2025-09-20 11:40] VITALS: BP 133/79; PULSE 65; RESP 16; O2SAT 98
[2025-09-20 11:52] LABS: Alanine Aminotransferase 33 U/L (0-33); Albumin Level 5.1 g/dL (3.5-5.2); Alkaline Phosphatase 105 U/L (35-105); Anion Gap 19.1 (5-19); Aspartate Amino Transferase 35 U/L (0-32); Blood Urea Nitrogen 7 mg/dL (6-20); Calcium 10.0 mg/dL (8.5-10.5); Carbon Dioxide 22 mmol/L (22-29); Chloride 102 mmol/L (98-107); Globulin 3.1 g/dL (1.3-4.6); Glucose 131 mg/dL (65-115); Lipase 17 U/L (13-60); Osmolality Calculated 288 mOsm/kg (285-295); Potassium 4.1 mmol/L (3.5-5.1); Sodium 139 mmol/L (136-145); Total Protein 8.2 g/dL (6.6-8.7)
--- NOTE | 2025-09-20 11:52 | XR_ITS ---
WS: [id number] Exam: XR chest 1V portable [id number] Date/Time of Exam: 09/20/2025 11:52 AM Reason For Exam: left side pain No priors. Lungs are clear. Normal heart size. The mediastinum and osseous thorax are unremarkable. XR/XR chest 1V portable [id number] IMPRESSION: 1. Negative chest.
[2025-09-20 12:28] VITALS: RESP 16; O2SAT 98
[2025-09-20] MEDS: fentaNYL 50 mcg/mL INJ 2mL 25 MCG IVP (12:28)
[2025-09-20 12:30] VITALS: BP 148/85; PULSE 72; O2SAT 96
== END 2025-09-20 12:40 | disposition home or self-care (01) ==
PROVIDERS: Emergency Provider Physician Assistant
DX: N23 Unspecified renal colic (principal); N30.00 Acute cystitis without hematuria; I10 Essential (primary) hypertension
CPT/HCPCS: 71045; 74176; 80053; 81000; 81001; 83690; 85025; 87086; 96374; 96375; 96376; 99285; J2405; J3010; J7030; J9999